=== PATIENT | female | born 2000 | race Caucasian/White ===

== ENCOUNTER 2023-07-02 17:29 | Inpatient (IN) | payer BC ==
[2023-07-02 18:05] LABS: BASOPHILS PERCENT AUTO 0.3 % (0.0-1.0); EOSINOPHILS ABSOLUTE AUTO 0.1 K/mm3 (0.0-0.4); EOSINOPHILS PERCENT AUTO 0.9 % (0.0-6.0); HEMATOCRIT 34.6 % (37.0-47.0); HEMOGLOBIN 11.6 gm/dl (12.0-16.0); IMMATURE GRAN ABSOLUTE AUTO 0.18 K/mm3 (0.00-0.05); IMMATURE GRAN PERCENT AUTO 1.5 % (0.0-0.4); LYMPHOCYTES ABSOLUTE AUTO 3.3 K/mm3 (1.0-4.8); LYMPHOCYTES PERCENT AUTO 28.2 % (24.0-44.0); MEAN CORPUSCULAR HEMOGLOBIN 29.7 pg (28.0-32.0); MEAN CORPUSCULAR HGB CONC 33.5 g/dl (32.0-36.0); MEAN CORPUSCULAR VOLUME 88.5 fl (83.0-99.0); MEAN PLATELET VOLUME 10.9 fl (9.4-12.3); MONOCYTES ABSOLUTE AUTO 0.8 K/mm3 (0.0-0.8); MONOCYTES PERCENT AUTO 6.8 % (0.0-8.0); NEUTROPHILS ABSOLUTE AUTO 7.3 K/mm3 (1.8-7.7); NEUTROPHILS PERCENT AUTO 62.3 % (41.0-71.0); PLATELET COUNT,PLT 210 K/mm3 (150-400); RED BLOOD CELL COUNT 3.91 M/mm3 (4.10-5.30); WHITE BLOOD CELL COUNT,WBC 11.71 K/mm3 (3.9-11.3)
[2023-07-02 18:22] LABS: PROTEIN CREATININE RATIO,URINE 655.6 mg/g (0-149); PROTEIN,URINE RANDOM 17.7 mg/dL (0.0-11.8)
[2023-07-02 18:26] LABS: CREATININE 0.7 mg/dL (0.55-1.02); EST CRCL DRUG DOSING (CG) 119.47 mL/min; URIC ACID 4.7 mg/dL (2.6-6.0)
[2023-07-02] MEDS ORDERED: NIFEdipine 10 MG Cap PO ONE (18:47)
[2023-07-02] MEDS ORDERED: Sodium Chloride 0.9% 10 ML Syringe FLUSH PRN (19:29)
[2023-07-02] MEDS ORDERED: Misoprostol 100 MCG Tab VAG PRN (19:29)
[2023-07-02] MEDS ORDERED: Nalbuphine 10 MG/0.5 ML Syringe IVPUSH PRN (19:29)
[2023-07-02] MEDS ORDERED: Acetaminophen 325 MG Tab PO PRN (19:29)
[2023-07-02] MEDS ORDERED: Calcium Gluconate 10% 1 GM/10 ML SDV IV PRN (19:29)
[2023-07-02] MEDS ORDERED: Magnesium Sulfate/Water 6 GM in Premix Bag 1 BAG IV ONE (19:29)
[2023-07-02] MEDS ORDERED: Lidocaine 1% 50 ML MDV INJECT ONE (19:29)
[2023-07-02] MEDS ORDERED: ceFAZolin 2 GM in Sodium Chloride 0.9% 50 ML IV ONE (19:29)
[2023-07-02] MEDS ORDERED: Magnesium Sulfate/Water 2 GM in Premix Bag 1 BAG IV ONE (20:00)
[2023-07-02] MEDS ORDERED: Magnesium Sulfate/Water 4 GM in Premix Bag 1 BAG IV ONE (20:00)
[2023-07-02] MEDS: Lactated Ringers 1,000 ML IV SCH (20:08)
[2023-07-02] MEDS ORDERED: Labetalol 100 MG/20 ML MDV IVPUSH ONE ×2 (20:14→22:34)
[2023-07-02] MEDS: Magnesium Sulfate/Water 40 GM/1,000 ML BAG IV SCH (20:42)
[2023-07-02] MEDS: Misoprostol 25 MCG (1/4 of 100 MCG) Tab VAG PRN (21:07)
[2023-07-02] MEDS: Sodium Chloride 0.9% 10 ML Syringe FLUSH SCH (21:46)
[2023-07-03] MEDS ORDERED: Bupivacaine 0.25% 10 ML SDV ONE
[2023-07-03] MEDS ORDERED: Labetalol 100 MG/20 ML MDV IVPUSH ONE ×2 (00:05→11:17)
[2023-07-03] MEDS: Misoprostol 25 MCG (1/4 of 100 MCG) Tab VAG PRN ×2 (01:02→05:11)
[2023-07-03] MEDS ORDERED: ceFAZolin 1 GM in Sodium Chloride 0.9% 100 ML IV SCH (04:00)
[2023-07-03] MEDS: ceFAZolin 1 GM in Sodium Chloride 0.9% 100 ML IV SCH ×2 (05:04→13:09)
[2023-07-03] MEDS ORDERED: Oxytocin/Lactated Ringers 10 UNIT/1,000 ML BAG IV SCH ×3 (09:00→16:21)
[2023-07-03] MEDS: Lactated Ringers 1,000 ML IV SCH (09:36)
[2023-07-03] MEDS ORDERED: Bupivacaine/fentaNYL/NS 100 ML Bag EPIDUR PRN (11:28)
[2023-07-03] MEDS ORDERED: diphenhydrAMINE 50 MG/ML SDV IVPUSH PRN (11:28)
[2023-07-03] MEDS ORDERED: ePHEDrine 50 MG/ML SDV IVPUSH PRN (11:28)
[2023-07-03] MEDS ORDERED: fentaNYL 100 MCG/2 ML SDV EPIDUR PRN (11:28)
[2023-07-03] MEDS ORDERED: Tranexamic Acid 1,000 MG/10 ML Vial ONE (14:20)
[2023-07-03] MEDS: Magnesium Sulfate/Water 40 GM/1,000 ML BAG IV SCH (15:26)
[2023-07-03] MEDS ORDERED: Misoprostol 200 MCG Tab RECTAL ONE (15:34)
[2023-07-03] MEDS ORDERED: Hydrocortisone Acetate 25 MG Supp RECTAL PRN (16:21)
[2023-07-03] MEDS ORDERED: Benzocaine/Menthol 20%-0.5% Spray 78 GM Cannister TOP PRN (16:21)
[2023-07-03] MEDS ORDERED: Witch Hazel Medicated Pads 40/Jar TOP PRN (16:21)
[2023-07-03] MEDS ORDERED: Acetaminophen 325 MG Tab PO PRN (16:21)
[2023-07-03] MEDS ORDERED: Docusate Sodium 100 MG Cap PO PRN (16:21)
[2023-07-03] MEDS ORDERED: Lactated Ringers 1,000 ML IV SCH (16:21)
[2023-07-03] MEDS ORDERED: Measles, Mumps & Rubella Vaccine 0.5 ML SDV SUBCUT ONE (18:03)
[2023-07-03 19:49] LABS: HEMATOCRIT 30.8 % (37.0-47.0); HEMOGLOBIN 10.3 gm/dl (12.0-16.0); MEAN CORPUSCULAR HGB CONC 33.4 g/dl (32.0-36.0); MEAN CORPUSCULAR VOLUME 89.8 fl (83.0-99.0); MEAN PLATELET VOLUME 10.9 fl (9.4-12.3); PLATELET COUNT,PLT 190 K/mm3 (150-400); RED BLOOD CELL COUNT 3.43 M/mm3 (4.10-5.30); WHITE BLOOD CELL COUNT,WBC 20.49 K/mm3 (3.9-11.3)
[2023-07-03 20:06] LABS: PROTHROMBIN TIME 9.3 SECONDS (9.7-12.0)
[2023-07-03 20:07] LABS: PTT,PARTIAL THROMBOPLSTIN TIME 25.4 SECONDS (21.7-31.4)
[2023-07-03 20:17] LABS: INR < 0.93
[2023-07-03 20:23] LABS: FIBRINOGEN 381 mg/dL (187-446)
[2023-07-03] MEDS ORDERED: Magnesium Hydroxide 400 MG/5 ML Susp 30 ML Cup PO PRN (21:00)
[2023-07-04] MEDS: Sodium Chloride 0.9% 10 ML Syringe FLUSH SCH (00:28)
[2023-07-04 06:41] LABS: BASOPHILS ABSOLUTE AUTO 0.1 K/mm3 (0.0-0.2); BASOPHILS PERCENT AUTO 0.3 % (0.0-1.0); EOSINOPHILS ABSOLUTE AUTO 0.1 K/mm3 (0.0-0.4); EOSINOPHILS PERCENT AUTO 0.5 % (0.0-6.0); HEMOGLOBIN 9.9 gm/dl (12.0-16.0); IMMATURE GRAN ABSOLUTE AUTO 0.14 K/mm3 (0.00-0.05); IMMATURE GRAN PERCENT AUTO 0.9 % (0.0-0.4); LYMPHOCYTES ABSOLUTE AUTO 3.1 K/mm3 (1.0-4.8); LYMPHOCYTES PERCENT AUTO 18.6 % (24.0-44.0); MEAN CORPUSCULAR HEMOGLOBIN 29.8 pg (28.0-32.0); MEAN CORPUSCULAR VOLUME 90.4 fl (83.0-99.0); MEAN PLATELET VOLUME 10.7 fl (9.4-12.3); MONOCYTES PERCENT AUTO 6.1 % (0.0-8.0); NEUTROPHILS ABSOLUTE AUTO 12.1 K/mm3 (1.8-7.7); NEUTROPHILS PERCENT AUTO 73.6 % (41.0-71.0); PLATELET COUNT,PLT 193 K/mm3 (150-400); RED BLOOD CELL COUNT 3.32 M/mm3 (4.10-5.30); WHITE BLOOD CELL COUNT,WBC 16.43 K/mm3 (3.9-11.3)
[2023-07-04] MEDS: Ibuprofen 600 MG Tab PO PRN ×2 (08:14→19:31)
[2023-07-04] MEDS: Prenatal Multivitamin with Calcium/Folic Acid/Iron Tab PO SCH (08:14)
[2023-07-04] MEDS ORDERED: Measles, Mumps & Rubella Vaccine 0.5 ML SDV SUBCUT ONE (09:00)
[2023-07-04] MEDS: Magnesium Sulfate/Water 40 GM/1,000 ML BAG IV SCH (10:29)
[2023-07-05] MEDS: Ibuprofen 600 MG Tab PO PRN (04:31)
[2023-07-05] MEDS: Prenatal Multivitamin with Calcium/Folic Acid/Iron Tab PO SCH (14:17)
== END 2023-07-05 12:55 | disposition home or self-care (01) | DRG 560 ==
LOC: JD.OBCHECK 17:29 → INTOOBSV 19:21 → OBSVTOIN 19:21 → JD.OBCHECK 19:21 → UNDOADMOB 19:21 → JD.OB 19:21 → INTOOBSV 07-03 15:16 → OBSVTOIN 07-03 15:16 → JD.OB 07-03 15:34
PROVIDERS: ADMIT Obstetrics & Gynecology; ATTEND Obstetrics & Gynecology
PROC: 10E0XZZ Delivery of Products of Conception, External Approach (ICD-10-PCS; principal; 2023-07-03)
PROC: 3E0P7VZ Introduction of Hormone into Female Reproductive, Via Natural or Artificial Opening (ICD-10-PCS; 2023-07-03)
PROC: 3E033VJ Introduction of Other Hormone into Peripheral Vein, Percutaneous Approach (ICD-10-PCS; 2023-07-03)
PROC: 10907ZC Drainage of Amniotic Fluid, Therapeutic from Products of Conception, Via Natural or Artificial Opening (ICD-10-PCS; 2023-07-03)
PROC: 0U7C7ZZ Dilation of Cervix, Via Natural or Artificial Opening (ICD-10-PCS; 2023-07-03)
PROC: 0KQM0ZZ Repair Perineum Muscle, Open Approach (ICD-10-PCS; 2023-07-03)
PROC: 0UQMXZZ Repair Vulva, External Approach (ICD-10-PCS; 2023-07-03)
PROC: 3E0R3BZ Introduction of Anesthetic Agent into Spinal Canal, Percutaneous Approach (ICD-10-PCS; 2023-07-03)
PROC: 00HU33Z Insertion of Infusion Device into Spinal Canal, Percutaneous Approach (ICD-10-PCS; 2023-07-03)
DX: O14.14 Severe pre-eclampsia complicating childbirth (principal); O72.1 Other immediate postpartum hemorrhage; O70.1 Second degree perineal laceration during delivery; O70.0 First degree perineal laceration during delivery; O99.824 Streptococcus B carrier state complicating childbirth; O99.62 Diseases of the digestive system complicating childbirth; K21.9 Gastro-esophageal reflux disease without esophagitis; O99.814 Abnormal glucose complicating childbirth; Z37.0 Single live birth; Z3A.37 37 weeks gestation of pregnancy; Z88.0 Allergy status to penicillin; Z28.39 Other underimmunization status; Z14.1 Cystic fibrosis carrier
CPT/HCPCS: 01967; 36415; 51702; 59025; 59409; 82565; 82570; 83615; 84156; 84450; 84460; 84520; 84550; 85025; 85027; 85384; 85610; 85730; 86592; 86850; 86900; 86901; A9270-GY; C1726; J0690; J2590; J3010; J3475; J3490; J7120

== ENCOUNTER 2025-05-05 00:59 | Inpatient (IN) | payer BC ==
[2025-05-05] MEDS ORDERED: Sodium Chloride 0.9% 10 ML Syringe FLUSH PRN (19:21)
[2025-05-05] MEDS ORDERED: Nalbuphine 10 MG/1 ML Vial IVPUSH PRN (19:21)
[2025-05-05] MEDS ORDERED: Ondansetron 4 MG/2 ML SDV IVPUSH PRN (19:21)
[2025-05-05] MEDS ORDERED: Oxytocin/0.9 % Sodium Chloride 30 UNIT/500 ML BAG IV SCH (19:30)
[2025-05-05 19:55] LABS: BASOPHILS ABSOLUTE AUTO 0.0 K/mm3 (0.0-0.2); BASOPHILS PERCENT AUTO 0.4 % (0.0-1.0); EOSINOPHILS ABSOLUTE AUTO 0.1 K/mm3 (0.0-0.4); EOSINOPHILS PERCENT AUTO 1.0 % (0.0-6.0); IMMATURE GRAN ABSOLUTE AUTO 0.11 K/mm3 (0.00-0.05); IMMATURE GRAN PERCENT AUTO 1.1 % (0.0-0.4); LYMPHOCYTES ABSOLUTE AUTO 3.0 K/mm3 (1.0-4.8); LYMPHOCYTES PERCENT AUTO 29.2 % (24.0-44.0); MEAN PLATELET VOLUME 10.2 fl (9.4-12.3); MONOCYTES ABSOLUTE AUTO 0.7 K/mm3 (0.0-0.8); MONOCYTES PERCENT AUTO 6.9 % (0.0-8.0); NEUTROPHILS ABSOLUTE AUTO 6.4 K/mm3 (1.8-7.7); NEUTROPHILS PERCENT AUTO 61.4 % (41.0-71.0); NRBC ABSOLUTE 0.00 (0.00-0.02); NRBC PERCENT 0.0 % (0.0-0.2); PLATELET COUNT,PLT 217 K/mm3 (150-400); RED BLOOD CELL COUNT 3.86 M/mm3 (4.10-5.30); WHITE BLOOD CELL COUNT,WBC 10.36 K/mm3 (3.9-11.3)
[2025-05-05] MEDS: Lactated Ringers 1,000 ML IV SCH (20:13)
[2025-05-05] MEDS: Oxytocin/0.9 % Sodium Chloride 30 UNIT/500 ML BAG IV SCH (20:14)
[2025-05-05 20:27] LABS: ALANINE AMINOTRANSFERASE,ALT 14 U/L (14-59); ASPARTATE AMNIOTRANSFERASE,AST 16 U/L (15-37); BLOOD UREA NITROGEN,BUN 10 mg/dL (7-18); CREATININE 0.6 mg/dL (0.55-1.02); ESTIMATED GFR 126 mL/min (>60); LACTATE DEHYDROGENASE,LDH 196 U/L (81-234)
[2025-05-05 21:32] LABS: CREATININE,URINE RAND 34.6 mg/dL (30.0-125.0)
[2025-05-05 21:36] LABS: PROTEIN,URINE RANDOM < 6.0 mg/dL (0.0-11.8)
[2025-05-05] MEDS ORDERED: diphenhydrAMINE 50 MG/ML SDV IVPUSH PRN (21:46)
[2025-05-05] MEDS ORDERED: ePHEDrine 50 MG/ML SDV IVPUSH PRN (21:46)
[2025-05-05] MEDS: fentaNYL 100 MCG/2 ML SDV EPIDUR PRN (21:52)
[2025-05-05] MEDS: Bupivacaine/fentaNYL/NS 100 ML Bag EPIDUR PRN (21:53)
[2025-05-06] MEDS ORDERED: Magnesium Hydroxide 400 MG/5 ML Susp 30 ML Cup PO PRN (02:59)
[2025-05-06] MEDS ORDERED: Oxytocin/0.9 % Sodium Chloride 30 UNIT/500 ML BAG IV SCH (02:59)
[2025-05-06] MEDS: Benzocaine/Menthol 20%-0.5% Spray 78 GM Cannister TOP PRN (03:44)
[2025-05-06] MEDS: Witch Hazel Medicated Pads 40/Jar TOP PRN (03:44)
[2025-05-06] MEDS: Prenatal Multivitamin with Calcium/Folic Acid/Iron Tab PO SCH (18:11)
[2025-05-07] MEDS: Measles, Mumps & Rubella Vaccine 0.5 ML SDV SUBCUT ONE (09:14)
== END 2025-05-07 10:08 | disposition home or self-care (01) | DRG 560 ==
LOC: JD.OB 00:59 → OBSVTOIN 05-06 00:59 → JD.OB 05-06 01:00
PROVIDERS: ADMIT Obstetrics & Gynecology; ATTEND Obstetrics & Gynecology
PROC: 10E0XZZ Delivery of Products of Conception, External Approach (ICD-10-PCS; principal; 2025-05-06)
PROC: 3E0R3BZ Introduction of Anesthetic Agent into Spinal Canal, Percutaneous Approach (ICD-10-PCS; principal; 2025-05-06)
PROC: 3E0234Z Introduction of Serum, Toxoid and Vaccine into Muscle, Percutaneous Approach (ICD-10-PCS; principal; 2025-05-06)
PROC: 0U7C7DJ Dilation of Cervix with Intraluminal Device, Temporary, Via Natural or Artificial Opening (ICD-10-PCS; principal; 2025-05-06)
PROC: 3E033VJ Introduction of Other Hormone into Peripheral Vein, Percutaneous Approach (ICD-10-PCS; principal; 2025-05-06)
PROC: 10907ZC Drainage of Amniotic Fluid, Therapeutic from Products of Conception, Via Natural or Artificial Opening (ICD-10-PCS; principal; 2025-05-06)
PROC: 0HQ9XZZ Repair Perineum Skin, External Approach (ICD-10-PCS; principal; 2025-05-06)
DX: O70.0 First degree perineal laceration during delivery (principal); Z3A.39 39 weeks gestation of pregnancy; Z37.0 Single live birth; Z23 Encounter for immunization; Z88.0 Allergy status to penicillin; Z88.2 Allergy status to sulfonamides; Z86.16 Personal history of COVID-19; Z79.82 Long term (current) use of aspirin; Z79.899 Other long term (current) drug therapy; Z14.1 Cystic fibrosis carrier
CPT/HCPCS: 01967; 36415; 51702; 59025; 59409; 82565; 82570; 83615; 84156; 84450; 84460; 84520; 84550; 85025; 86592; 86850; 86900; 86901; 90471; 90707; A9270-GY; J3010; J3490; J7120; J7999